=== PATIENT | male | born 1990 | race Caucasian/White ===

== ENCOUNTER 2018-01-02 14:41 | Emergency (ER) | payer MEDICAID, SELFPAY ==
[2018-01-02 14:53] VITALS: BP 147/78; PULSE 88; RESP 16; TEMP 37.1; O2SAT 98
--- NOTE | 2018-01-02 15:03 | DI.RAD_ITS ---
SYMPTOMS/DIAGNOSIS: PAIN AND SWELLING LOCATED AT THE SNUFF BOX, NO INJURY RIGHT HAND: Three views were obtained. No fracture is seen.
--- NOTE | 2018-01-02 15:04 | W.ED.GENAD ---
Discharge Plan Disposition Patient Disposition: HOME Condition: Good Discharge Details Chief Complaint: Orthopedic Clinical Impression: Median nerve neuritis Primary Care Provider: NONE,NONE ED Provider: Ranjan Fowler Home Meds and New Rx's Prescriptions: No Action No Known Home Meds RF: 0 Discharge Instructions Instructions: Hand Sprain (ED) Referrals: [facility] Emergency Dept. [Outside] Discharge Data Discharge Date/Time-TO BE ENTERED AT DEPARTURE: 01/02/18 15:39 Medical Decision Making Plan to x-ray hand. Dr. Owens called and reported no fracture to the hand. I did not do a wrist even though he had pain at the snuff box. He had pain radiating up from the thumb with no injury. However Dr. Owens was kind enough to look at the navicular and did not see any obvious pathology. Patient apprised. I advised to use RICE therapy until injured hand is better. Nurse applied TOMMIE prior to discharge. HPI General Mode of arrival: ambulatory. Date/Time Provider Initiated Documentation: 01/02/18 14:58. Limitations to Documentation: no limitations. Information obtained by: patient. History of Present Illness 27 year old M presents to the emergency department with the chief complaint of hand pain, described as mild, Quality is described as aching, and is localized to the right (hand). Patient reports no radiation. Patient started experiencing this week(s) (with 1 day of swelling. ) and it has been intermittent. No relieving factors improve symptom(s), Movement worsens symptoms . Patient notes no other symptoms.. Patient did receive the following treatments prior to arrival, none Related Data Home Medications Medication Instructions Recorded Confirmed Unknown [No Known Home Meds] 01/02/18 01/02/18 Allergies Allergy/AdvReac Type Severity Reaction Status Date / Time enviornmental Allergy Mild uri Uncoded 01/06/17 16:31 symptoms General Stated Complaint: Orthopedic ISMA: 4 Review of Systems Constitutional Reports as per HPI Musculoskeletal Reports arthralgias and Reports joint swelling (right hand swelling) PFSH Social History Smoking/Tobacco Use Status: Current every day Exam Const General: cooperative Nutritional Appearance: average body habitus Orientation: alert, awake and oriented x3 Extrem Right upper extremity: full ROM, wrist Details: normal to inspection, tenderness (at the snuff box but radiating from the web space between index and thumb fingers. ), normal ROM and normal vascular exam; no swelling, no unusual warmth and no ecchymosis and hand Details: normal capillary refill, neuromotor exam normal, tenderness (between index finger and thumb in the web space. ) Location: of the dorsal hand and of the thumb (base of at the thenar eminence. ) Location: at the thenar eminence and normal ROM of fingers Hand/finger images: 1. Pain and mild swelling. No redness or discoloration Course Vital Signs Temperature 37.1 C 01/02/18 14:53 Pulse 88 01/02/18 14:53 Respiratory Rate 16 01/02/18 14:53 Blood Pressure 147/78 H 01/02/18 14:53 Pulse Oximetry 98 01/02/18 14:53 Temperature 37.1 C 01/02/18 14:53 Temperature Source Temporal Artery Scan 01/02/18 14:53 Pulse 88 01/02/18 14:53 Respiratory Rate 16 01/02/18 14:53 Respiratory Effort Non-Labored 01/02/18 14:56 Blood Pressure 147/78 H 01/02/18 14:53 Blood Pressure Position Sitting 01/02/18 14:53 Pulse Oximetry 98 01/02/18 14:53 Oxygen Delivery Method Room Air 01/02/18 14:53 Oxygen Flow Rate 0 01/02/18 14:53 Pain Level 7 01/02/18 14:53
--- NOTE | 2018-01-02 15:07 | ED.GENADUL_ITS ---
Discharge Plan Disposition Patient Disposition: HOME Condition: Good Discharge Details Chief Complaint: Orthopedic Clinical Impression: Median nerve neuritis Primary Care Provider: NONE,NONE ED Provider: Ranjan Fowler Home Meds and New Rx's Prescriptions: No Action No Known Home Meds RF: 0 Discharge Instructions Instructions: Hand Sprain (ED) Referrals: [facility] Emergency Dept. [Outside] Discharge Data Discharge Date/Time-TO BE ENTERED AT DEPARTURE: 01/02/18 15:39 Medical Decision Making Plan to x-ray hand. Dr. Owens called and reported no fracture to the hand. I did not do a wrist even though he had pain at the snuff box. He had pain radiating up from the thumb with no injury. However Dr. Owens was kind enough to look at the navicular and did not see any obvious pathology. Patient apprised. I advised to use RICE therapy until injured hand is better. Nurse applied TOMMIE prior to discharge. HPI General Mode of arrival: ambulatory . Date/Time Provider Initiated Documentation: 01/02/18 14:58 . Limitations to Documentation: no limitations . Information obtained by: patient . History of Present Illness 27 year old M presents to the emergency department with the chief complaint of hand pain, described as mild, Quality is described as aching, and is localized to the right (hand). Patient reports no radiation. Patient started experiencing this week(s) (with 1 day of swelling. ) and it has been intermittent. No relieving factors improve symptom(s), Movement worsens symptoms . Patient notes no other symptoms.. Patient did receive the following treatments prior to arrival, none Related Data Home Medications Medication Instructions Recorded Confirmed Unknown [No Known Home Meds] 01/02/18 01/02/18 Allergies Allergy/AdvReac Type Severity Reaction Status Date / Time enviornmental Allergy Mild uri Uncoded 01/06/17 16:31 symptoms General Stated Complaint: Orthopedic ISMA: 4 Review of Systems Constitutional Reports as per HPI Musculoskeletal Reports arthralgias and Reports joint swelling (right hand swelling) PFSH Social History Smoking/Tobacco Use Status: Current every day Exam Const General: cooperative Nutritional Appearance: average body habitus Orientation: alert, awake and oriented x3 Extrem Right upper extremity: full ROM, wrist Details: normal to inspection, tenderness (at the snuff box but radiating from the web space between index and thumb fingers. ), normal ROM and normal vascular exam; no swelling, no unusual warmth and no ecchymosis and hand Details: normal capillary refill, neuromotor exam normal, tenderness (between index finger and thumb in the web space. ) Location: of the dorsal hand and of the thumb (base of at the thenar eminence. ) Location: at the thenar eminence and normal ROM of fingers Hand/finger images: 2 1. Pain and mild swelling. No redness or discoloration Course Vital Signs Temperature 37.1 C 01/02/18 14:53 Pulse 88 01/02/18 14:53 Respiratory Rate 16 01/02/18 14:53 Blood Pressure 147/78 H 01/02/18 14:53 Pulse Oximetry 98 01/02/18 14:53 Temperature 37.1 C 01/02/18 14:53 Temperature Source Temporal Artery Scan 01/02/18 14:53 Pulse 88 01/02/18 14:53 Respiratory Rate 16 01/02/18 14:53 Respiratory Effort Non-Labored 01/02/18 14:56 Blood Pressure 147/78 H 01/02/18 14:53 Blood Pressure Position Sitting 01/02/18 14:53 Pulse Oximetry 98 01/02/18 14:53 Oxygen Delivery Method Room Air 01/02/18 14:53 Oxygen Flow Rate 0 01/02/18 14:53 Pain Level 7 01/02/18 14:53
== END 2018-01-02 15:39 | disposition home or self-care (01) ==
PROVIDERS: Emergency Provider Nurse Practitioner Family
DX: G56.11 Other lesions of median nerve, right upper limb (principal)
CPT/HCPCS: 99283; 73130

== ENCOUNTER 2020-10-26 09:31 | Emergency (ER) | payer OTHER, SELFPAY ==
[2020-10-26 09:37] VITALS: BP 129/72; PULSE 86; RESP 16; TEMP 37.2; O2SAT 98
--- NOTE | 2020-10-26 09:45 | DI.RAD_ITS ---
Exam(s) XR HAND LT COMPLETE XR WRIST LT COMPLETE EXAM: XR WRIST LT COMPLETE CLINICAL HISTORY: softball injury TECHNIQUE: COMPARISON: CR,XR XR HAND LT COMPLETE from 10/26/2020 CR,XR XR HAND LT COMPLETE from 10/26/2020 FINDINGS: Three views of the hand and three views of the wrist were obtained. There is no evidence of acute fr acture or dislocation. Carpal alignment appears within normal limits. IMPRESSION: RADIATION DOSE DELIVERED: Total DLP
--- NOTE | 2020-10-26 09:48 | W.ED.GENAD ---
Discharge Plan Disposition Patient Disposition: HOME Condition: Stable Discharge Details Clinical Impression: Contusion of left wrist Primary Care Provider: None,None ED Provider: Oseas Tolbert Home Meds and New Rx's Prescriptions: No Action No Known Home Meds RF: 0 Discharge Instructions Instructions: Contusion in Adults (ED), Wrist Sprain (ED) Additional Instructions: Official read of the x-ray will be available in the next 1-2 hours, if positive I will personally call you. If you do not hear from me, I would like you to wear the splint as needed, advance activity as tolerated. [id number] Tylenol and/or Motrin as directed for discomfort. Cool compresses every 2 hours for 20 minutes. Please watch for new or worsening symptoms and return to the ER for any concerns. If x-ray is positive and I call you, I will refer you over to orthopedics. Medical Decision Making 30-year-old gentleman, [id number], struck with a softball yesterday in the left hand and wrist while wearing a softball glove. Took Motrin with little relief. Clinically this appears to be a contusion will obtain x-ray to rule out any bony abnormality X-ray officially read by me as negative, awaiting official radiology report. Discussed on official read with patient, will place into a universal wrist splint, recommend cold compresses and [id number] Tylenol and/or Motrin. Will not make the patient wait for the official read as the therapy will not change, I will contact him if the x-ray is over read as positive. Patient is comfortable with this plan and has no questions or concerns. Standard discharge and return precautions given. Radiology report of x-ray of left hand and wrist unremarkable. Medical Records Medical records reviewed: Yes I reviewed the patient's medical records. HPI General Mode of arrival: ambulatory. Date/Time Provider Initiated Documentation: 10/26/20 09:47. Limitations to Documentation: no limitations. Information obtained by: patient. History of Present Illness 30 year old M presents to the emergency department with the chief complaint of hand/wrist pain, described as moderate and severe, Quality is described as aching and constant, and is localized to the left and upper extremity. Patient reports no radiation. Patient started experiencing this day(s) (1) and it has been constant. No relieving factors improve symptom(s), Movement worsens symptoms . Patient notes no other symptoms.. Patient did receive the following treatments prior to arrival, NSAID Related Data Home Medications Medication Instructions Recorded Confirmed Unknown [No Known Home Meds] 01/02/18 10/26/20 Allergies Allergy/AdvReac Type Severity Reaction Status Date / Time enviornmental Allergy Mild uri Uncoded 10/26/20 09:41 symptoms General Stated Complaint: Orthopedic ISMA: 4 Review of Systems Constitutional Constitutional: Denies weakness Musculoskeletal Musculoskeletal: Denies deformity, Reports arthralgias, Denies numbness, Reports stiffness and Denies tingling Integumentary/Breasts Skin/Breast: Denies erythema Neurologic Neurologic: Denies numbness, Denies tingling and Denies weakness [facility] Social History Smoking/Tobacco Use Status: Current every day Tobacco Type: cigarettes Smoking risk assessment performed?: Yes Alcohol Intake: current Alcohol Intake frequency: a few times a month Alcohol type: beer Drug use: Current Sobriety Do you feel safe in your relationship?: Yes Exam Const General: cooperative, healthy appearing, comfortable and no acute distress Orientation: alert and awake [facility] Head: normal to inspection, normocephalic and atraumatic Eyes General: appearance normal, both eyes and all related structures Conjunctivae: conjunctivae normal Neck Neck: normal visual inspection, trachea midline and supple Resp Effort & Inspection: normal respiratory effort and able to speak in complete sentences Cardio Rate: regular rate Rhythm: regular rhythm Skin General skin exam: no rashes or lesions noted Neuro General: patient alert, patient awake, moves all extremities and no focal motor deficits Cognition: normal cognition Speech: speech normal Gait: normal gait Sensory Exam: no sensory deficits noted Extrem General: full ROM and capillary refill normal Hand/finger images: 1. Diffuse mild tenderness, swelling, ecchymosis. Normal radial pulse. No bony point tenderness. Skin is intact. Normal capillary refill. Neuro, vascular, tendon intact. Psych Appearance: grossly normal Mental Status: mental status grossly normal Course Vital Signs Vital signs: Vital Signs Temperature 37.2 C 10/26/20 09:37 Pulse 86 10/26/20 09:37 Respiratory Rate 16 10/26/20 09:37 Blood Pressure 129/72 10/26/20 09:37 Pulse Oximetry 98 10/26/20 09:37 Temperature 37.2 C 10/26/20 09:37 Temperature Source Skin 10/26/20 09:37 Pulse 86 10/26/20 09:37 Respiratory Rate 16 10/26/20 09:37 Respiratory Effort Non-Labored 10/26/20 09:37 Blood Pressure 129/72 10/26/20 09:37 Blood Pressure Position Sitting 10/26/20 09:37 Pulse Oximetry 98 10/26/20 09:37 Oxygen Delivery Method Room Air 10/26/20 09:37 Oxygen Flow Rate 0 10/26/20 09:37 Pain Level 10 10/26/20 09:41
--- NOTE | 2020-10-26 10:22 | DI.VRAD_ITS ---
PROCEDURE INFORMATION: Exam: XR Left Hand Exam date and time: 10/26/2020 9:54 AM Age: 30 years old Clinical indication: Injury or trauma; Other: Softball injury; Blunt trauma (contusions or hematomas); Hand; Left TECHNIQUE: Imaging protocol: XR Left hand. Views: 3 or more views. COMPARISON: No relevant images were readily available for comparison purposes. FINDINGS: Bones/joints: No acute fracture or dislocation. Soft tissues: Unremarkable. IMPRESSION: No acute fracture or dislocation. Dictated and Authenticated by: David Modi MD. Ordering:MELANI Farooq MD
--- NOTE | 2020-10-26 10:23 | DI.VRAD_ITS ---
PROCEDURE INFORMATION: Exam: XR Left Wrist Exam date and time: 10/26/2020 9:48 AM Age: 30 years old Clinical indication: Injury or trauma; Other: Softball injury; Blunt trauma (contusions or hematomas); Wrist; Left TECHNIQUE: Imaging protocol: XR Left wrist. Views: 3 or more views. COMPARISON: No relevant images were readily available for comparison purposes. FINDINGS: Bones/joints: No acute fracture or dislocation. Soft tissues: Unremarkable. IMPRESSION: No acute fracture or dislocation. Dictated and Authenticated by: David Modi MD. Ordering:MELANI Farooq MD
== END 2020-10-26 10:25 | disposition home or self-care (01) ==
PROVIDERS: Emergency Provider Physician Assistant
DX: S60.212A Contusion of left wrist, initial encounter (principal); W21.07XA Struck by softball, initial encounter; Y93.64 Activity, baseball
CPT/HCPCS: 29125; 99284; 73110; 73130; 99283

== ENCOUNTER 2021-10-11 17:52 | Emergency (ER) | payer OTHER, SELFPAY ==
--- OUTSIDE RECORDS SUMMARY | 2021-10-11 18:01 | XMS_ITS | Clinical Summary ---
:1990 Author Organization [facility] [place] [address] Care Team Providers Name Role Phone David Denton MD Primary Care Provider Allergies No known active allergies Medications Medication Sig Dispensed Refills Start Date End Date Status diclofenac (VOLTAREN) Take 50 mg by 0 Active 50 mg EC tablet mouth as needed. Active Problems Problem Noted Date Right foot pain 01/30/2012 Family History Medical History Relation Comments Alcohol Use Disorder Maternal Uncle Drug Abuse Maternal Uncle Relation Status Comments Maternal Uncle Social History Tobacco Use Types Packs/Day Years Used Date Current Some Day Smoker Cigarettes Alcohol Use Standard Drinks/Week Comments No 0 (1 standard drink = 0.6 oz pure alcoho l) Sex Assigned at Date Recorded Not on file Last Filed Vital Signs Vital Sign Reading Time Taken Comments Blood Pressure 119/63 01/28/2012 11:15 AM EST Pulse 77 01/28/2012 11:15 AM EST Temperature - - Respiratory Rate - - Oxygen Saturation 100% 01/28/2012 11:15 AM EST Inhaled Oxygen Concentration - - Weight 77.1 kg (170 lb) 01/28/2012 11:15 AM EST Height 171.5 cm (5' 7.5) 01/28/2012 11:15 AM EST Body Mass Index 26.23 01/28/2012 11:15 AM EST Plan of Treatment Health Maintenance Due Date Last Done Comments Covid-19 Vaccine (#1) 08/06/1996 HIV screen 08/06/2009 Hepatitis C Screening 08/06/2009 Tdap adult 08/06/2010 Tetanus vaccine 08/06/2010 Influenza (Flu) vaccine (1 of 1 - Influenza standard 11/19/2021 series) Care Teams Pre Owned Sales Consultant Relationship Specialty Start Date End Date David Denton MD PCP - General 10/21/11 [address] [place] [address]
--- OUTSIDE RECORDS SUMMARY | 2021-10-11 18:01 | XMS_ITS | Encounter Summary ---
:1990 Author Organization [facility] [place] [address] Care Team Providers Name Role Phone David Denton MD Primary Care Provider Reason for Visit Reason Comments Right Foot Pain Encounter Details Date Type Department Care Team Description 01/28/2012 Office Visit Pain Management at [facility] t foot pain [place] (Primary Dx) [facility] [address] [place] [facility] [id number] [place] [id number] [phone] Social History Tobacco Use Types Packs/Day Years Used Date Current Some Day Smoker Cigarettes Alcohol Use Standard Drinks/Week Comments No 0 (1 standard drink = 0.6 oz pure alcoho l) Sex Assigned at Date Recorded Not on file documented as of this encounter Last Filed Vital Signs Vital Sign Reading [...] Mass Index 26.23 01/28/2012 11:15 AM EST documented in this encounter Progress Notes Yoni Buchanan MD - 01/30/2012 1:19 PM EST Subjective: Patient ID: Daniel Rose is a 21 y.o. male. I have been asked by Dr. David Denton to consult on Mr. Daniel Rose For right foot pain to rule out CRPS Chief complaint right foot pain HPI Patient states that in March 2011, he fell through a hole on a step of a set of stairs. His left leg went through the whole and he wound up in burning his right foot and ankle. He has been through physical therapy, including exercises on the bike, treadmill, contrast baths. He continue to do the home exercises including contrast baths and therapeutic band exercises. He states the pain is not gone away in his right foot and ankle, but the pain is not there all the time. He describes it as being present more often than not. He states that sheets rubbing along this foot no longer bother him. He describes the pain as being painful and annoying. Besides physical therapy he was treated with amitriptyline 50 mg at night which made him feel hung over most of the rest of the morning. He was also treatedwith Naprosyn 500 mg twice daily and no significant improvement. He has been prescribed diclofenac 50 mg 3 times a day and it helps him but he only takes it maybe 3 or 4 times a week when he feels he needs it. He has also been switched from amitriptyline to imipramine 50 mg but is not taking that. He states that he still has some trouble getting to sleep but once he is asleep he is sleeping well and does not feel he needs a sleep medicine. He describes a shooting pain along the right side of his foot, going to the big toe sometimes. It can spread out the posterior lateral aspect of the calf and sometimes onto the anterior hua. He states that the shooting pain was more constant initially but now only occurs maybe once or twice today and for a few seconds. He does note a little bit of burning after standing for a long time. He does describe swelling of his foot and ankle earlier on but that has re solved. He denies any back pain any loss of control of bowel or bladder. He has had 2 sets of x-raysof his foot and ankle, neither of which are available for me to review. He's never had a bone scan nor any nerve conduction studies Review of Systems Constitutional: Positive for unexpected weight change (lost some 5 pounds because the pain medications made him nauseated). HENT: Negative for hearing loss and dental problem. Eyes: Negative for visual disturbance. Respiratory: Negative for shortness of breath. Cardiovascular: Negative for chest pain. Gastrointestinal: Positive for constipation (tenths to have trouble with bowel movements sometimes does not have a bowel movement for several dayshe reports this as being a bowel obstruction). Negative for any loss of control of bowel Genitourinary: Negative for dysuria and hematuria. Negative for any loss of control of bladder Musculoskeletal: Positive for arthralgias (foot and ankle pain see present illness). Negative for back pain. Neurological: Negative for seizures. Hematological: Does not bruise/bleed easily. Psychiatric/Behavioral: Positive for sleep disturbance (see present illness). Current outpatient prescriptions Medication Sig Dispense Refill ??? diclofenac (VOLTAREN) 50 mg EC tablet Take 50 mg by mouth as needed. No Known Allergies No past surgical history on file. No previous operations No past medical history on file. Only previous medical problem has been constipation for 4-5 days described by the patient as being bowel obstruction Family History Problem Relation Age of Onset ??? Alcohol Abuse Maternal Uncle ??? Drug Abuse Maternal Uncle History Social History ??? Marital Status: Single Spouse Name: N/A Number of Children: N/A ??? Years of Education: N/A Occupational History ??? Not on file. Social History Main Topics ??? Smoking status: Current Some Day Smoker Types: Cigarettes ??? Smokeless tobacco: Not on file ??? Alcohol Use: No ??? Drug Use: ??? Sexually Active: Other Topics Concern ??? Not on file Social History Narrative Single living at home with his parents not working.he has no children. He states he applied for several jobs but was told to report on the application that he had his right foot pain and consequently all employers have told him to call back later. He does help clean around the house. As well as [employer] at times. He is going to school he completed culinary studies in the past. He smokes 3 or4 cigarettes per day denies any alcohol or street drug abuse. His uncle had serious problems with alcohol and heroin addiction Objective: Physical Exam Vitals reviewed. Constitutional: He is oriented to person, place, and time. He appears well- developed and well-nourished. HENT: Head: Normocephalic. Eyes: EOM are normal. Cardiovascular: Normal rate and regular rhythm. Pulmonary/Chest: Breath sounds normal. Musculoskeletal: Right foot: He exhibits normal range of motion, no swelling, normal capillary refill and no deformity. Both feet showed normal pink equal color; both feet were equally warm; Hair growth on both feet and ankles was equal and normal Toenail growth on both feet was equal and normal Dorsalis pedis pulses were 2+ and equal bilaterally There was no swelling or edema on either foot Sensation was intact bilaterally with no allodynia or withdrawal to light touch There is negative Tinel's sign to tapping over the sural nerve at the ankle, superficial peroneal nerve at the ankle, deep peroneal nerve in the midfoot, or the saphenous nerve at the ankle all on the right side. Some 5 minutes after tapping over the saphenous nerve he did have some dysesthesia in thesaphenous nerve distribution going to his great toe on the right. Lymphadenopathy: He has no cervical adenopathy. Neurological: He is alert and oriented to person, place, and time. He has normal strength. He displays no atrophy and no tremor. No sensory deficit. He exhibits normal muscle tone. Gait (initial mild antalgia on the right) abnormal. He displays no Babinski's sign on the right side. He displays no Babinski's sign on the left side. Reflex Scores: Tricep reflexes are 2+ on the right side and 2+ on the left side. Bicep reflexes are 2+ on the right side and 2+ on the left side. Brachioradialis reflexes are 2+ on the right side and 2+ on the left side. Patellar reflexes are 3+ on the right side and 3+ on the left side. Achilles reflexes are 2+ on the right side and 2+ on the left side. Skin: Skin is warm and dry. No rash noted. No erythema. Psychiatric: He has a normal mood and affect. His behavior is normal. Judgment and thought content normal. No xrays or bone scan available for my review Assessment and Plan: My assessment is that this patient is suffering from right foot pain following a significant inversion To his right ankle. I suspect that at the time of the injury he may have stretched the sural nerveand possibly part of the peroneal nerve on the right side. This would account for the shooting pain and the burning pain that he has felt intermittently along his foot. However this type of pain is significantly reducing and I think the nerves are slowly healing. I also suspect that the ligamentous injuries have improved and again are slowly healing. Recommendations: 1. I recommended that he take his diclofenac at least twice daily with food on a routine basis to cut down the inflammatory component of his pain as he is continuing to heal. The patient does state that it helps him but he only takes it when the pain is severe. Therefore, he is waiting until the pain is significantly present before he tries to cut down the inflammation. 2. I did recommend that he can try the imipramine under a half tablet or a full tablet at bedtime tohelp him get to sleep out some of his ear to building and with some several weeks of taking this on a routine daily basis cutting down on some of the nerve pain particularly the electrical shooting pain. Other options of treatment would be consideration of Lidoderm patches, or Neurontin or Lyrica. I was specifically asked about some nerve blocks might help his pain and I do not think there is anynerve block that could be that beneficial for him. Any nerve block around the knee the nurse and theankles may actually injured a nerves again and make things worse. And while there may have been some sympathetic component associated with this pain early on, there does not appear to be much in the way of any sympathetically mediated pain at this point in time which might benefit from a lumbar sympathetic block. I did not prescribe any new medications for this patient, nor have I set up any followup appointments at this point in time. I would be glad to see him again or help discuss his case in the future. documented in this encounter Plan of Treatment Not on filedocumented as of this encounter Visit Diagnoses Diagnosis Right foot pain - Primary Pain in limb documented in this encounter Care Teams Skein Spooler Relationship Specialty Start Date End Date David Denton MD PCP - General 10/21/11 [address] [place] [address] documented as of this encounter
[2021-10-11 18:02] VITALS: BP 129/80; PULSE 94; TEMP 37.2; O2SAT 99
--- NOTE | 2021-10-11 18:15 | DI.RAD_ITS ---
Exam(s) XR ANKLE RT COMPLETE EXAM: XR ANKLE RT COMPLETE CLINICAL HISTORY: right ankle pain. TECHNIQUE: 2D digital imaging was performed. COMPARISON: CR RIGHT ANKLE COMPLETE from 04/04/2011 FINDINGS: 3 views No evidence of fracture or widening of the mortise. Talar dome unremarkable. Bone density normal. No osseous lesions. No osseous tarsal coalition IMPRESSION: No significant findings DATA REPOSITORY: RADIATION DOSE DELIVERED:
--- NOTE | 2021-10-11 19:05 | ED.GENADUL_ITS ---
Discharge Plan Disposition Patient Disposition: HOME Condition: Stable Discharge Details Clinical Impression: Ankle sprain Primary Care Provider: None,None ED Provider: Bing Macias Home Meds and New Rx's Prescriptions: No Action No Known Home Meds Discharge Instructions Instructions: Ankle Sprain (ED) Additional Instructions: Take ibuprofen and Tylenol as needed for pain Wear the boot as needed for discomfort With persistent pain greater than 1 week recommend repeat x-ray Return earlier should you have new or worsening complaints Stand Alone Forms: Work Release Discharge Data Discharge Date/Time-TO BE ENTERED AT DEPARTURE: 10/11/21 19:38 Medical Decision Making X-ray does not show evidence of acute abnormality per radiologist review Given boot for comfort Repeat x-ray in 1 week with persistent pain recommended Return precautions discussed and patient expressed understanding Medical Records Medical records reviewed: Yes I reviewed the patient's medical records. Lab Data Lab results reviewed: Yes I reviewed the patient's lab results. HPI General Date/Time Provider Initiated Documentation: 10/11/21 18:26 . HPI Narrative: This 31-year-old male presents with ankle injury just prior to arrival. He states he twisted his right ankle and felt a pop. He states he fractured the ankle 6 times in the process. Denies any hardware. Denies any knee pain. Denies chest pain or shortness of breath. Has been ambulatory with pain. Denies any additional complaints at this time. Related Data Home Medications Medication Instructions Recorded Confirmed Unknown [No Known Home Meds] 01/02/18 10/11/21 Allergies Allergy/AdvReac Type Severity Reaction Status Date / Time saúl AdvReac Intermediate splotchy Unverified 10/11/21 18:09 redness enviornmental Allergy Mild uri Uncoded 10/26/20 09:41 symptoms General Stated Complaint: Orthopedic ISMA: 4 Review of Systems Narrative: Review of systems obtained x3 and negative aside from medication HPI PFSH All Active Problems (Updated 10/11/21 @ 19:06 by ROCKY Calhoun) Contusion of left wrist (Acute) Ankle sprain (Acute) Social History Smoking/Tobacco Use Status: Current every day Tobacco Type: cigarettes Smoking risk assessment performed?: Yes Alcohol Intake: current Alcohol Intake frequency: a few times a month Alcohol type: beer Drug use: Socially Substance use type: marijuana Do you feel safe at home: Yes Do you feel safe in your relationship?: Yes Exam Const General: cooperative, comfortable and no acute distress Extrem Ankle/foot/toe images: 1. Tenderness to palpation, mild swelling, neurovascularly intact No tenderness to right knee, no obvious deformity Course Vital Signs Vital signs: Vital Signs Temperature 37.2 C 10/11/21 18:02 Pulse 94 H 10/11/21 18:02 Blood Pressure 129/80 10/11/21 18:02 Pulse Oximetry 99 10/11/21 18:02 Temperature 37.2 C 10/11/21 18:02 Temperature Source Skin 10/11/21 18:02 Pulse 94 H 10/11/21 18:02 Respiratory Effort 10/11/21 18:09 Blood Pressure 129/80 10/11/21 18:02 Blood Pressure Position Sitting 10/11/21 18:02 Pulse Oximetry 99 10/11/21 18:02 Oxygen Delivery Method Room Air 10/11/21 18:02 Oxygen Flow Rate 0 10/11/21 18:02 Pain Level 10 10/11/21 18:02 Comment 10/11/21 18:02 PAWSS Have you Been Recently Intoxicated or Drunk Within the Last 30 days?: No Have you Ever Experienced Previous Episodes of Alcohol Withdrawal?: No Have you ever Experienced Withdrawal Seizures?: No Have you ever Experienced Delirium Tremens(DT)s?: No Have you ever undergone Alcohol Rehabilitation Treatment (i.e, inpt ot outpatient treatment programs)?: No Have you ever Experienced Blackouts?: No Have you ever Combined Alcohol with other Downers within the last 90 days?: No Have you ever Combined Alcohol with any other Substance of Abuse during the last 90 days?: No Positive Blood Alcohol level on Presentation? [PCS.BAL]: No Evidence of Increased Autonomic Activity (i.e. HR>120, tremor, sweating, agitation, nausea)?: No Result: 0
--- NOTE | 2021-10-11 19:18 | DI.VRAD_ITS ---
PROCEDURE INFORMATION: Exam: XR Right Ankle Exam date and time: 10/11/2021 6:48 PM Age: 31 years old Clinical indication: Other: Right ankle pain; Additional info: Patient slid into a base TECHNIQUE: Imaging protocol: Radiologic exam of the Right ankle. Views: 3 or more views. COMPARISON: MRI R LOWER JOINT WO CONT 06/02/2015 5:15 PM FINDINGS: Bones/joints: The distal tibia and fibula are intact. Ankle mortise is uniform. Talar dome is intact. Calcaneus is intact. Base of the 5th metatarsal is intact. No joint effusion. Soft tissues: No evidence of soft tissue air. Negative for radiopaque foreign body. IMPRESSION: No acute osseous abnormality. If symptoms persist, follow-up imaging is advised. Dictated and Authenticated by: Ranjan Subramanian MD. Ordering:ABISAI Smart MD
== END 2021-10-11 19:38 | disposition home or self-care (01) ==
PROVIDERS: Emergency Provider Physician Assistant
DX: S93.402A Sprain of unspecified ligament of left ankle, initial encounter (principal); F17.210 Nicotine dependence, cigarettes, uncomplicated; X50.1XXA Overexertion from prolonged static or awkward postures, initial encounter
CPT/HCPCS: 99283; 73610; 99282

== ENCOUNTER 2021-12-17 10:01 | Emergency (ER) | payer OTHER, SELFPAY ==
[2021-12-17 10:05] VITALS: BP 142/83; PULSE 67; RESP 18; TEMP 36.5; O2SAT 98
--- NOTE | 2021-12-17 10:15 | DI.RAD_ITS ---
Exam(s) XR FOREARM RT EXAM: XR FOREARM RT CLINICAL HISTORY: direct blow. TECHNIQUE: 2D digital imaging was performed of the left forearm. Two views were obtained. AP and l ateral views were obtained. COMPARISON: No exams were available for comparison FINDINGS: BONES: No acute fracture is present. No bony destructive lesion is seen. Visualized portion of elbow and wrist joints are unremarkable. SOFT TISSUE: Normal. IMPRESSION: Unremarkable radiographs of the left forearm. DATA REPOSITORY: RADIATION DOSE DELIVERED:
--- NOTE | 2021-12-17 10:15 | DI.RAD_ITS ---
Exam(s) XR WRIST RT COMPLETE EXAM: XR WRIST RT COMPLETE CLINICAL HISTORY: direct blow. TECHNIQUE: 2D digital imaging was performed of the right wrist. Three views were obtained. PA, lat eral and oblique views were obtained. COMPARISON: No exams were available for comparison FINDINGS: BONES: No acute fracture is present. No bony destructive lesion is seen. JOINTS: The carpal bones are normally aligned. SOFT TISSUE: Normal. IMPRESSION: Unremarkable radiographs of the right wrist. DATA REPOSITORY: RADIATION DOSE DELIVERED:
[2021-12-17] MEDS: Acetaminophen 500 MG TAB (10:36)
--- NOTE | 2021-12-17 10:40 | ED.GENADUL_ITS ---
Discharge Plan Disposition Patient Disposition: HOME Condition: Stable Discharge Details Clinical Impression: Contusion of right wrist Primary Care Provider: None,None ED Provider: Oseas Tolbert Home Meds and New Rx's Prescriptions: No Action No Known Home Meds Discharge Instructions Instructions: Contusion in Adults (ED) Additional Instructions: X-ray of your wrist and forearm are unremarkable. Wear splint as needed, advance activity as tolerated. [id number] Tylenol and/or Motrin as directed for discomfort. Cool and/or warm compresses every 2 hours for 20 minutes. Please watch for new or worsening symptoms and return to the ER for any concerns. Please follow-up with your Workmen's Comp. provider Medical Decision Making 31-year-old gentleman, [id number], had a refrigerator lid fall directly onto his right wrist-forearm. Denies any other injury, numbness, tingling, weakness. Reports pain is primarily in the wrist that radiates to the forearm. Will obtain x-ray of the wrist and forearm and reassess X-ray of forearm and wrist unremarkable per radiology Discussed x-ray findings with patient, will place into a universal wrist splint. Discussed conservative measures. We will follow-up with Workmen's Comp. on Tuesday if symptoms are to persist Standard discharge and return precautions were provided. Patient understands, is agreeable to this plan, and has no additional questions or concerns upon discharge. This documentation was generated using [employer] system, please disregard any oddities of phrase or misspellings. Medical Records Medical records reviewed: Yes I reviewed the patient's medical records. Imaging Data Radiologic Study: Attestation: I personally reviewed and interpreted this imaging study as follows: Imaging: X-Ray Radiologist's impression: Exam(s) XR FOREARM RT EXAM: XR FOREARM RT CLINICAL HISTORY: direct blow. TECHNIQUE: 2D digital imaging was performed of the left forearm. Two views were obtained. AP and lateral views were obtained. COMPARISON: No exams were available for comparison FINDINGS: BONES: No acute fracture is present. No bony destructive lesion is seen. Visualized portion of elbow and wrist joints are unremarkable. SOFT TISSUE: Normal. IMPRESSION: Unremarkable radiographs of the left forearm. Radiologic Study #2: Attestation: I personally reviewed and interpreted this imaging study as follows: Imaging: X-Ray Radiologist's impression: Exam(s) XR WRIST RT COMPLETE EXAM: XR WRIST RT COMPLETE CLINICAL HISTORY: direct blow. TECHNIQUE: 2D digital imaging was performed of the right wrist. Three views were obtained. PA, lateral and oblique views were obtained. COMPARISON: No exams were available for comparison FINDINGS: BONES: No acute fracture is present. No bony destructive lesion is seen. JOINTS: The carpal bones are normally aligned. SOFT TISSUE: Normal. IMPRESSION: Unremarkable radiographs of the right wrist HPI General Mode of arrival: ambulatory . Date/Time Provider Initiated Documentation: 12/17/21 10:13 . Limitations to Documentation: no limitations . Information obtained by: patient . History of Present Illness 31 year old M presents to the emergency department with the chief complaint of R wrist injury, described as moderate, with intensity rated at 6. Quality is described as aching, and is localized to the right and upper extremity. Patient reports no radiation. Patient started experiencing this hour(s) (1) and it has been constant. Immobilization improves symptom(s), Movement worsens symptoms . Patient notes no other symptoms.. Patient did receive the following treatments prior to arrival, none Related Data Home Medications Medication Instructions Recorded Confirmed Unknown [No Known Home Meds] 01/02/18 12/17/21 Allergies Allergy/AdvReac Type Severity Reaction Status Date / Time saúl AdvReac Intermediate splotchy Unverified 12/17/21 10:11 redness enviornmental Allergy Mild uri Uncoded 12/17/21 10:11 symptoms General Stated Complaint: Orthopedic ISMA: 4 Review of Systems Constitutional Constitutional: Denies weakness Musculoskeletal Musculoskeletal: Denies deformity, Reports arthralgias, Denies numbness, Reports stiffness and Denies tingling Integumentary/Breasts Skin/Breast: Denies erythema Neurologic Neurologic: Denies numbness, Denies tingling and Denies weakness PFSH All Active Problems Contusion of left wrist (Acute) Contusion of right wrist (Acute) Social History Smoking/Tobacco Use Status: Current every day Tobacco Type: cigarettes Smoking risk assessment performed?: Yes Alcohol Intake: current Alcohol Intake frequency: a few times a month Alcohol type: beer Drug use: Socially Substance use type: marijuana Do you feel safe at home: Yes Do you feel safe in your relationship?: Yes Exam Const General: cooperative, healthy appearing, comfortable and no acute distress Orientation: alert and awake [facility] Head: normal to inspection, normocephalic and atraumatic Eyes Conjunctivae: conjunctivae normal Neck Neck: normal visual inspection, trachea midline and supple Resp Effort & Inspection: normal respiratory effort and able to speak in complete sentences Cardio Rate: regular rate Rhythm: regular rhythm Skin General skin exam: no rashes or lesions noted Neuro General: patient alert, patient awake, moves all extremities and no focal motor deficits Cognition: normal cognition Speech: speech normal Gait: normal gait Motor: muscle tone normal throughout Sensory Exam: no sensory deficits noted Extrem General: full ROM and capillary refill normal Elbow/forearm/wrist images: 1. Contusion, tenderness, no bony point tenderness or deformity. Full range of motion. Normal radial pulse and capillary refill Psych Appearance: grossly normal Mental Status: mental status grossly normal Course Vital Signs Vital signs: Vital Signs Temperature 36.5 C 12/17/21 10:05 Pulse 67 12/17/21 10:05 Respiratory Rate 18 12/17/21 10:05 Blood Pressure 142/83 H 12/17/21 10:05 Pulse Oximetry 98 12/17/21 10:05 Temperature 36.5 C 12/17/21 10:05 Temperature Source Temporal Artery Scan 12/17/21 10:05 Pulse 67 12/17/21 10:05 Respiratory Rate 18 12/17/21 10:05 Respiratory Effort Non-Labored 12/17/21 10:10 Blood Pressure 142/83 H 12/17/21 10:05 Blood Pressure Position Sitting 12/17/21 10:05 Pulse Oximetry 98 12/17/21 10:05 Oxygen Delivery Method Room Air 12/17/21 10:05 Oxygen Flow Rate 0 12/17/21 10:05 Pain Level 10 12/17/21 10:36 PAWSS Have you Been Recently Intoxicated or Drunk Within the Last 30 days?: No Have you Ever Experienced Previous Episodes of Alcohol Withdrawal?: No Have you ever Experienced Withdrawal Seizures?: No Have you ever Experienced Delirium Tremens(DT)s?: No Have you ever undergone Alcohol Rehabilitation Treatment (i.e, inpt ot outpatient treatment programs)?: No Have you ever Experienced Blackouts?: No Have you ever Combined Alcohol with other Downers within the last 90 days?: No Have you ever Combined Alcohol with any other Substance of Abuse during the last 90 days?: No Positive Blood Alcohol level on Presentation? [PCS.BAL]: No Evidence of Increased Autonomic Activity (i.e. HR>120, tremor, sweating, agitation, nausea)?: No Result: 0
== END 2021-12-17 11:40 | disposition home or self-care (01) ==
PROVIDERS: Emergency Provider Physician Assistant
DX: S60.211A Contusion of right wrist, initial encounter (principal); F17.210 Nicotine dependence, cigarettes, uncomplicated; W20.8XXA Other cause of strike by thrown, projected or falling object, initial encounter
CPT/HCPCS: 29125; 99284; 73090; 73110; 99282

== ENCOUNTER 2023-08-09 14:17 | Emergency (ER) | payer SELFPAY ==
--- NOTE | 2023-08-09 14:15 | DI.RAD_ITS ---
Exam(s) XR ANKLE RT COMPLETE XR FOOT RT COMPLETE EXAM: XR ANKLE RT COMPLETE CLINICAL HISTORY: pain. TECHNIQUE: 2D digital imaging was performed. Three views of the foot and ankle. COMPARISON: CR,XR XR ANKLE RT COMPLETE from 10/11/2021 CR XR FOOT RT COMPLETE from 08/09/2023 FINDINGS: BONES: No acute fracture is present. No bony destructive lesion is seen. Small calcaneal enthesophy te. JOINTS: The ankle mortise is normally aligned. No significant degenerative changes. SOFT TISSUE: Normal. IMPRESSION: Unremarkable radiographs of the right ankle and foot. DATA REPOSITORY: RADIATION DOSE DELIVERED:
[2023-08-09 14:19] VITALS: BP 174/83; PULSE 76; RESP 15; TEMP 36.6; O2SAT 98
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
[2023-08-09] MEDS: Acetaminophen 500 MG TAB 1000 MG PO (14:40)
[2023-08-09 15:44] VITALS: BP 174/83; PULSE 76; RESP 15; TEMP 36.6; O2SAT 98
== END 2023-08-09 15:44 | disposition home or self-care (01) ==
PROVIDERS: Emergency Provider Emergency Medicine
DX: S93.601A Unspecified sprain of right foot, initial encounter (principal); S93.401A Sprain of unspecified ligament of right ankle, initial encounter; M79.671 Pain in right foot; M25.571 Pain in right ankle and joints of right foot; X50.0XXA Overexertion from strenuous movement or load, initial encounter
CPT/HCPCS: 29515; 99284; 73610; 73630; 99283